=== PATIENT | female | born 1945 | race Caucasian/White ===

== ENCOUNTER → 2021-06-25 | Outpatient (CLI) | payer MEDICARE ==
[~2021-06-25] MED LIST: MIRALAX17 GM PO; NAPROSYN250 MG PO; NORCO 5-325 TA1 EACH PO
== END ==
LOC: HEART CORB 08:52
DX: I11.9 Hypertensive heart disease without heart failure (principal); R94.31 Abnormal electrocardiogram [ECG] [EKG]; I27.20 Pulmonary hypertension, unspecified; I08.1 Rheumatic disorders of both mitral and tricuspid valves
CPT/HCPCS: 93306